=== PATIENT | male | born 1960 | race Caucasian/White ===

== ENCOUNTER 2018-09-22 16:27 | Observation (INO) ==
[2018-09-22] MEDS ORDERED: 0.9 % Sodium Chloride 1,000 ML IVC ONE (16:47)
--- NOTE | 2018-09-22 17:07 | Emergency Department Note ---
Disposition Clinical Impression: Failure to thrive Qualifiers: Failure to thrive age range: in adult Qualified Code(s): R62.7 - Adult failure to thrive Disposition: Admitted As Inpatient Condition: Fair Referrals: Maria Luisa Hayes CNP [Primary Care Provider] - Forms: ED Satisfaction Letter, Work/School Release Time of Disposition: 19:53 General Adult HPI - General Chief complaint: ED General Medical Stated complaint: decreased appetite Time Seen by Provider: 09/22/18 16:40 Source: patient, EMS Mode of arrival: EMS Limitations: no limitations Nursing Notes Reviewed: Yes Vital Signs Reviewed: Yes - History of Present Illness HPI Narrative: Patient was brought emergently from by EMS from home. Family members called squad because patient had poor appetite. Patient corroborates poor appetite but he does not complain of any other issues. Patient was here a week ago for the same issues. He was discharged because workup was negative. Family members were given instructions in the how to get the patient admitted to a detention if they did not feel that they could care for him at home. Apparently those calls were never made. Other than having lack of appetite, the patient has actually no other complaint. Pt Subjective Complaint: Poor appetite Onset (ago): unknown Pain Scale: 0 Associated symptoms: Reports: denies other symptoms Treatments Prior to Arrival: none - Related Data Home Medications Medication Instructions Recorded Confirmed Aspirin [Lo-Dose Aspirin EC] 81 mg PO DAILY 01/06/16 09/22/18 Clopidogrel [Plavix] 75 mg PO DAILY 01/06/16 09/22/18 Cyanocobalamin (Vitamin B-12) 1,000 mcg PO DAILY 01/06/16 09/22/18 [Vitamin B-12] Insulin Glulisine [Apidra Solostar] 15 unit SQ TID 01/06/16 09/22/18 Isosorbide MONOnitrate [Isosorbide 60 mg PO DAILY 01/06/16 09/22/18 Mononitrate] Lisinopril [Zestril] 40 mg PO DAILY 01/06/16 09/22/18 Metoprolol Succinate 12.5 mg PO DAILY 01/06/16 09/22/18 Sennosides [Evac-U-Gen] 8.6 mg PO DAILY 01/06/16 09/22/18 Tizanidine HCl 2 mg PO QID PRN 01/06/16 09/22/18 Atorvastatin [Lipitor] 10 mg PO HS 06/12/18 09/22/18 Gabapentin [Neurontin] 800 mg PO TID 06/12/18 09/22/18 Insulin Glargine,Hum.rec.anlog 34 unit SQ DAILY 06/12/18 09/22/18 [Basaglar Kwikpen U-100] OxyCODONE Immed Rel [Roxicodone 5 7.5 mg PO TID PRN 06/12/18 09/22/18 MG] amLODIPine [Norvasc] 10 mg PO DAILY 06/12/18 09/22/18 Allergies Allergy/AdvReac Type Severity Reaction Status Date / Time No Known Allergies Allergy Verified 09/15/18 16:24 All systems ED: reviewed and negative except as stated. Constitutional: Denies: fever, chills Eyes: Denies: vision change ENT ED: Denies: ear pain, throat pain, congestion Cardiovascular: Denies: chest pain, palpitations Respiratory: Reports: cough (Blood patient says that his cough is chronic). Denies: dyspnea, wheezes Gastrointestinal: Reports: other (Decreased appetite). Denies: abdominal pain, vomiting, diarrhea Musculoskeletal: Denies: back pain, neck pain Integumentary: Denies: rash Neurological: Denies: headache Past Medical History - Past Medical History Attestation: Yes The following information was validated with the patient. Source: patient, old records reviewed, nursing notes reviewed Medical history: Reports: coronary artery disease, CVA, DVT, diabetes, hepatitis, hypertension, myocardial infarction, peripheral artery disease Surgical history: Reports: LE vascular intervention, other (Right second toe amputation) Psychiatric history: Reports: no psych history - Social History Smoking Status: Former smoker Smokeless Tobacco Status: No Alcohol use: Reports: none Drug use: Reports: none Physical Exam - General Limitations: no limitations General appearance: alert, in no apparent distress - Head Head exam: atraumatic, normocephalic, normal inspection - Eye Eye exam: Present: normal appearance, PERRL, EOMI. Absent: scleral icterus, conjunctival injection - ENT ENT exam: normal exam, normal oropharynx, mucous membranes moist, normal external ear exam - Neck Neck exam: Present: normal inspection, full ROM, trachea midline. Absent: meningismus - Chest Chest inspection: Present: normal inspection, symmetric chest wall rise, tenderness - Respiratory Respiratory exam: Present: normal lung sounds bilaterally, respiratory distress. Absent: wheezes - Cardiovascular Cardiovascular exam: Present: regular rate, normal rhythm, irregular rhythm - Abdominal Exam Abdominal exam: Present: soft, Non-Tender, normal bowel sounds - Extremities Exam Extremities exam: Present: normal inspection. Absent: tenderness, pedal edema - Neurological Exam Neurological exam: Present: alert, oriented X3 - Psychiatric Psychiatric exam: Present: flat affect - Skin Skin exam: Present: warm, dry. Absent: rash Course Course Narrative: Patient sent in to the emergency room by family for the second time in a week. Patient says he has decreased appetite. Is not really interested in being here. There is some report any history about confusion. I think the patient is slow in answering but everything he said to me seems appropriate. I am not finding any focal neurologic symptoms or signs. Sound like there is more of a failure to thrive issue going on based on this patient's presentation now and what I reviewed from the previous ER visit. I am going to workup on the patient for medical issues. Disposition will be based on diagnostic results and reevaluation. - Reevaluation(s) Reevaluation #1: Labs look fine. However the patient's home circumstance does not make me bel ieve that he will do well at home. We cannot get a hold of family and it sounds like were was caring form is not in the picture at the present time. Patient really cannot ambulate or take care of himself. I spoke with the hospitalist and we will admit him here for what seems to be detention placement. Time: 19:51 - Consultations Consultation #1: Dr. Armstrong, hospitalist - I discussed the case with the hospice. He accepted the patient for admission. Time: 19:40 Vital Signs Temperature 98.0 F 09/22/18 16:27 Pulse Rate 84 09/22/18 16:27 Respiratory Rate 16 09/22/18 16:27 Blood Pressure 136/78 09/22/18 16:27 O2 Sat by Pulse Oximetry 97 09/22/18 16:27 Temperature 98.0 F 09/22/18 16:27 Pulse Rate 58 09/22/18 19:36 Respiratory Rate 20 09/22/18 19:36 Blood Pressure 154/70 09/22/18 19:36 O2 Sat by Pulse Oximetry 95 09/22/18 19:36 Oxygen Delivery Oxygen Delivery Room Air Medical Decision Making - Medical Records Medical records reviewed: Yes I reviewed the patient's medical records. - Lab Data Lab results reviewed: Yes I reviewed the patient's lab results. Result diagrams: 09/22/18 17:19 09/22/18 17:19 Lab Results 09/22/18 09/22/18 09/22/18 Range/Units 17:19 17:19 17:19 WBC 5.1 (4.3-11.1) K/mcL RBC 3.49 L (4.19-5.50) M/mcL Hgb 10.6 L (12.9-16.9) g/dL Hct 30.3 L (37.5-50.1) % MCV 86.8 (83.0-100.0) fL MCH 30.4 (28.0-33.3) pg MCHC 35.0 (31.6-35.5) g/dL RDW 13.0 (11.5-14.5) % Plt Count 201 (140-400) K/mcL MPV 9.3 L (9.4-12.4) fL Immature Gran % 0.4 (0-4) % Seg Neutrophils % 56.6 % Lymphocytes % 31.4 % Monocytes % 7.9 % Eosinophils % 3.3 % Basophils % 0.4 % Neutrophils # 2.9 (1.6-8.9) K/mcL Lymphocytes # 1.6 (0.6-4.6) K/mcL Monocytes # 0.4 (0.0-1.3) K/mcL Eosinophils # 0.2 (0.0-0.6) K/mcL Basophils # 0.0 (0.0-0.2) K/mcL Sodium 135 L (136-145) mEq/L Potassium 3.9 (3.5-5.1) mEq/L Chloride 102 (98-107) mEq/L Carbon Dioxide 25 (23-29) mEq/L BUN 16 (6-20) mg/dL Creatinine 0.91 (0.70-1.30) mg/dL Est GFR ( Amer) > 60 (> 60) Est GFR (Non-Af Amer) > 60 (> 60) BUN/Creatinine Ratio 18 (6-26) Glucose 133 H (70-105) mg/dL Calculated Osmolality 283 (280-300) Lactic Acid (0.5-2.2) mmol/L Calcium 9.3 (8.6-10.3) mg/dL Total Bilirubin 0.6 (0.3-1.0) mg/dL Direct Bilirubin 0.1 (0.0-0.2) mg/dL Indirect Bilirubin 0.5 (0.0-1.2) mg/dL AST 15 (13-39) Units/L ALT 13 (7-52) Units/L Alkaline Phosphatase 68 (34-104) Units/L Ammonia (16-53) mcmol/L Troponin I < 0.03 (< 0.04) ng/mL Serum Total Protein 7.2 (6.4-8.9) g/dL Albumin 3.8 (3.5-5.7) g/dL Globulin 3.4 (2.4-3.5) g/dL Albumin/Globulin Ratio 1.1 (1.1-2.2) Lipase 5 L (11-82) Units/L 09/22/18 09/22/18 Range/Units 17:19 17:19 WBC (4.3-11.1) K/mcL RBC (4.19-5.50) M/mcL Hgb (12.9-16.9) g/dL Hct (37.5-50.1) % MCV (83.0-100.0) fL MCH (28.0-33.3) pg MCHC (31.6-35.5) g/dL RDW (11.5-14.5) % Plt Count (140-400) K/mcL MPV (9.4-12.4) fL Immature Gran % (0-4) % Seg Neutrophils % % Lymphocytes % % Monocytes % % Eosinophils % % Basophils % % Neutrophils # (1.6-8.9) K/mcL Lymphocytes # (0.6-4.6) K/mcL Monocytes # (0.0-1.3) K/mcL Eosinophils # (0.0-0.6) K/mcL Basophils # (0.0-0.2) K/mcL Sodium (136-145) mEq/L Potassium (3.5-5.1) mEq/L Chloride (98-107) mEq/L Carbon Dioxide (23-29) mEq/L BUN (6-20) mg/dL Creatinine (0.70-1.30) mg/dL Est GFR ( Amer) (> 60) Est GFR (Non-Af Amer) (> 60) BUN/Creatinine Ratio (6-26) Glucose (70-105) mg/dL Calculated Osmolality (280-300) Lactic Acid 1.0 (0.5-2.2) mmol/L Calcium (8.6-10.3) mg/dL Total Bilirubin (0.3-1.0) mg/dL Direct Bilirubin (0.0-0.2) mg/dL Indirect Bilirubin (0.0-1.2) mg/dL AST (13-39) Units/L ALT (7-52) Units/L Alkaline Phosphatase (34-104) Units/L Ammonia 39 (16-53) mcmol/L Troponin I (< 0.04) ng/mL Serum Total Protein (6.4-8.9) g/dL Albumin (3.5-5.7) g/dL Globulin (2.4-3.5) g/dL Albumin/Globulin Ratio (1.1-2.2) Lipase (11-82) Units/L - Radiology Data Radiology results reviewed: Yes I reviewed the patient's radiology results. - EKG Data EKG #1 EKG attestation: Yes I reviewed and interpreted this EKG. EKG results narrative: Twelve-lead EKG performed at 1724 PM. Ordered, reviewed and to her by ED physician shows sinus rhythm at a rate of 78. Normal axis. Good hour progressi on across the precordium. No acute ischemic changes. Intervals within normal limits.
[2018-09-22 17:28] LABS: Basophils % 0.4 %; Eosinophils # 0.2 K/mcL (0.0-0.6); Eosinophils % 3.3 %; Hematocrit 30.3 % (37.5-50.1); Hemoglobin 10.6 g/dL (12.9-16.9); Immature Granulocytes % 0.4 % (0-4); Lymphocytes # 1.6 K/mcL (0.6-4.6); Lymphocytes % 31.4 %; Mean Corpuscular Hemoglobin 30.4 pg (28.0-33.3); Mean Corpuscular Volume 86.8 fL (83.0-100.0); Mean Platelet Volume 9.3 fL (9.4-12.4); Monocytes # 0.4 K/mcL (0.0-1.3); Monocytes % 7.9 %; Neutrophils # 2.9 K/mcL (1.6-8.9); Platelet Count 201 K/mcL (140-400); Red Blood Count 3.49 M/mcL (4.19-5.50); Segmented Neutrophils % 56.6 %
[2018-09-22 17:46] LABS: BUN/Creatinine Ratio 18 (6-26); Blood Urea Nitrogen 16 mg/dL (6-20); Calcium 9.3 mg/dL (8.6-10.3); Carbon Dioxide 25 mEq/L (23-29); Chloride 102 mEq/L (98-107); Glucose 133 mg/dL (70-105); Osmolality,Calculated 283 (280-300); Potassium 3.9 mEq/L (3.5-5.1); Sodium 135 mEq/L (136-145); eGFR For Non-African Americans > 60 (> 60)
[2018-09-22 17:47] LABS: Alanine Aminotransferase 13 Units/L (7-52); Albumin 3.8 g/dL (3.5-5.7); Albumin/Globulin Ratio 1.1 (1.1-2.2); Alkaline Phosphatase 68 Units/L (34-104); Aspartate Amino Transferase 15 Units/L (13-39); Bilirubin,Direct 0.1 mg/dL (0.0-0.2); Bilirubin,Indirect 0.5 mg/dL (0.0-1.2); Bilirubin,Total 0.6 mg/dL (0.3-1.0); Globulin 3.4 g/dL (2.4-3.5); Lipase 5 Units/L (11-82); Total Protein 7.2 g/dL (6.4-8.9)
[2018-09-22 17:49] LABS: Troponin I < 0.03 ng/mL (< 0.04)
[2018-09-22 19:40] LABS: Bilirubin,Urine Small (Negative); Blood,Urine Negative (Negative); Color,Urine Yellow (Yellow); Glucose,Urine (UA) Normal (Normal); Ketones,Urine Trace mg/dL (Negative); Leukocyte Esterase,Urine Negative (Negative); Nitrite,Urine Negative (Negative); Protein,Urine >=300 mg/dL (Neg-Trace); Specific Gravity,Urine 1.025 (1.010-1.025)
[2018-09-22 19:55] LABS: Clarity,Urine Slightly Cloudy (Clear)
[2018-09-22 19:56] LABS: Amorphous Sediment,Urine Many (Few)
[2018-09-22] MEDS ORDERED: Naloxone 0.4 MG/ML INJ IVP PRN (21:05)
[2018-09-22] MEDS ORDERED: Gabapentin 400 MG CAPSULE PO SCH (21:05)
[2018-09-22] MEDS ORDERED: *HR* OxyCODONE Immed Rel 5 MG TABLET PO PRN (21:05)
[2018-09-22] MEDS ORDERED: INSULIN GLULISINE 15 UNIT SQ SCH (21:05)
[2018-09-22] MEDS ORDERED: tiZANidine 4 MG TABLET PO PRN (21:05)
[2018-09-22 23:39] VITALS: BP 129/77
[2018-09-23] MEDS ORDERED: Lisinopril 20 MG TABLET PO SCH (09:00)
[2018-09-23] MEDS ORDERED: Sennosides 8.6 MG TABLET PO SCH (09:00)
[2018-09-23] MEDS ORDERED: amLODIPine 5 MG TABLET PO SCH (09:00)
[2018-09-23] MEDS ORDERED: NON-FORMULARY MEDICATION 1 EACH EACH (Insulin Glargine,Hum.Rec.Anlog [Basaglar Kwikpen U-1 SQ SCH (09:00)
[2018-09-23] MEDS ORDERED: Metoprolol XL (24 HR) Succ 25 MG TAB.ER.24H PO SCH (09:00)
[2018-09-23] MEDS ORDERED: Cyanocobalamin (B-12) 1,000 MCG TABLET PO SCH (09:00)
[2018-09-23] MEDS ORDERED: Isosorbide MONOnitrate (24 HR) 60 MG TAB.ER.24H PO SCH (09:00)
[2018-09-23] MEDS ORDERED: Aspirin Enteric Coated 81 MG Tablet PO SCH (09:00)
--- NOTE | 2018-09-27 13:14 | Electrocardiograph Report ---
[address] [address] Test Date: 2018-09-22 Pat Name: Avinash Camp Department: EDP-11 Room: [facility] Gender: Solution Design Engineer: : [id number] Requested By: Lucas Saunders Order Number: [id number] Reading MD: Aaron Vargas Measurements Intervals [place] Rate: 78 P: 82 OR: 162 QRS: 45 QRSD: 77 T: 77 QT: 400 QTc: 456 Interpretive Statements Sinus rhythm Abnormal R-wave progression, early transition Probable inferior infarct, old Electronically Signed On 09-27-2018 13:12:28 EDT by Aaron Vargas
== END 2018-09-23 00:12 | disposition other institution (70) ==
LOC: INPPIK 16:27 → EMEROOPIK 16:27 → INPPIK 20:34
PROVIDERS: ADMIT Internal Medicine; ATTEND Internal Medicine

== ENCOUNTER 2020-02-22 19:56 | Observation (INO) ==
[2020-02-22] MEDS ORDERED: Ondansetron 4 MG/2 ML VIAL IVP ONE (19:59)
[2020-02-22] MEDS ORDERED: 0.9 % Sodium Chloride 1,000 ML IVC ONE ×2 (20:02→20:28)
[2020-02-22] MEDS ORDERED: Piperacillin/Tazobactam 3.375 GM in 0.9 % Sodium Chloride Mini Bag 100 ML IVPB ONE (20:02)
[2020-02-22] MEDS ORDERED: 0.9 % Sodium Chloride 1,000 ML IVC SCH (20:15)
[2020-02-22] MEDS ORDERED: 0.9 % Sodium Chloride 500 ML IVC ONE (20:28)
[2020-02-22 20:57] LABS: Bilirubin,Urine Negative (Negative); Blood,Urine Negative (Negative); Clarity,Urine Clear (Clear); Color,Urine Yellow (Yellow); Glucose,Urine (UA) Normal (Normal); Ketones,Urine Negative (Negative); Leukocyte Esterase,Urine Negative (Negative); Nitrite,Urine Negative (Negative); PH,Urine 5.5 pH Units (5.0-8.0); Protein,Urine 30 mg/dL (Neg-Trace)
[2020-02-22 21:07] LABS: Basophils % 0.1 %; Eosinophils % 0.4 %; Hematocrit 33.7 % (37.5-50.1); Immature Granulocytes % 0.3 % (0-4); Lymphocytes # 0.4 K/mcL (0.6-4.6); Lymphocytes % 5.6 %; Mean Corpuscular HGB Conc 32.6 g/dL (31.6-35.5); Mean Corpuscular Hemoglobin 28.8 pg (28.0-33.3); Mean Corpuscular Volume 88.2 fL (83.0-100.0); Monocytes # 0.2 K/mcL (0.0-1.3); Monocytes % 2.8 %; Neutrophils # 6.6 K/mcL (1.6-8.9); Platelet Count 109 K/mcL (140-400); Red Blood Count 3.82 M/mcL (4.19-5.50); Red Cell Distribution Width 13.3 % (11.5-14.5); Segmented Neutrophils % 90.8 %; White Blood Count 7.3 K/mcL (4.3-11.1)
[2020-02-22 21:16] LABS: Mucus,Urine Many per lpf (None-Few); Squamous Epithelial Cell,Urine Moderate per hpf (None-Few); Transitional Epi Cells,Urine Moderate per hpf (None-Few)
[2020-02-22 21:29] LABS: Alanine Aminotransferase 13 Units/L (7-52); Albumin 3.6 g/dL (3.5-5.7); Albumin/Globulin Ratio 1.2 (1.1-2.2); Alkaline Phosphatase 68 Units/L (34-104); Aspartate Amino Transferase 17 Units/L (13-39); BUN/Creatinine Ratio 23 (6-26); Bilirubin,Total 0.5 mg/dL (0.3-1.0); Blood Urea Nitrogen 21 mg/dL (8-23); Calcium 8.3 mg/dL (8.6-10.3); Carbon Dioxide 26 mEq/L (23-29); Chloride 105 mEq/L (98-107); Globulin 2.9 g/dL (2.4-3.5); Glucose 158 mg/dL (70-105); Lipase 5 Units/L (11-82); Osmolality,Calculated 300 (280-300); Sodium 142 mEq/L (136-145); Total Protein 6.5 g/dL (6.4-8.9); eGFR For African Americans > 60 (> 60); eGFR For Non-African Americans > 60 (> 60)
[2020-02-23] MEDS ORDERED: *HR* Promethazine 25 MG/ML VIAL IVP PRN
[2020-02-23] MEDS ORDERED: Dextrose Gel 15 GM/37.5 ML TUBE PO PRN ×2
[2020-02-23] MEDS ORDERED: Milk and Molasses Enema 200 ML RC PRN
[2020-02-23] MEDS ORDERED: Naloxone 0.4 MG/ML INJ IVP PRN
[2020-02-23] MEDS ORDERED: Acetaminophen 325 MG TABLET PO PRN
[2020-02-23] MEDS ORDERED: Albuterol 2.5 MG/3 ML NEBULIZER IH PRN
[2020-02-23] MEDS ORDERED: D5% in Water 1,000 ML IVC PRN
[2020-02-23] MEDS ORDERED: tiZANidine 4 MG TABLET PO PRN
[2020-02-23] MEDS ORDERED: *HR* Dextrose 50 % in Water (Vial) 50 ML VIAL IVP PRN
[2020-02-23] MEDS: 0.9 % Sodium Chloride 1,000 ML IVC SCH ×2 (01:46→11:17)
[2020-02-23] MEDS ORDERED: Ipratropium/Albuterol Neb 3 ML IH SCH ×2 (04:00→08:00)
[2020-02-23] MEDS ORDERED: 0.9 % Sodium Chloride 500 ML IV ONE ×2 (04:19→08:00)
[2020-02-23] MEDS ORDERED: Piperacillin/Tazobactam 3.375 GM in 0.9 % Sodium Chloride Mini Bag 100 ML IVPB SCH (06:00)
[2020-02-23] MEDS ORDERED: 0.9 % Sodium Chloride 500 ML IVC ONE ×2 (07:25→08:59)
[2020-02-23] MEDS ORDERED: Insulin LISPRO 300 UNITS/3 ML VIAL SQ SCH ×2 (07:30→12:00)
[2020-02-23] MEDS ORDERED: Ondansetron 4 MG/2 ML VIAL IVP PRN ×2 (07:38)
[2020-02-23] MEDS ORDERED: Acetaminophen 650 MG RECTAL SUPP RC PRN (08:03)
[2020-02-23] MEDS ORDERED: Cyanocobalamin (B-12) 1,000 MCG TABLET PO SCH (09:00)
[2020-02-23] MEDS ORDERED: Gabapentin 400 MG CAPSULE PO SCH (09:00)
[2020-02-23] MEDS ORDERED: Aspirin Enteric Coated 81 MG Tablet PO SCH (09:00)
[2020-02-23] MEDS ORDERED: Insulin DETEMIR 100 UNIT/ML X5UNITS SQ SCH (09:00)
[2020-02-23] MEDS ORDERED: Sennosides 8.6 MG TABLET PO SCH (09:00)
[2020-02-23] MEDS ORDERED: MOM Conc 10 ML UD.LIQ PO PRN (09:00)
[2020-02-23 09:05] LABS: Basophils % 0.1 %; Eosinophils % 0.2 %; Hematocrit 27.5 % (37.5-50.1); Hemoglobin 9.1 g/dL (12.9-16.9); Immature Granulocytes % 0.6 % (0-4); Lymphocytes # 1.5 K/mcL (0.6-4.6); Lymphocytes % 14.8 %; Mean Corpuscular HGB Conc 33.1 g/dL (31.6-35.5); Mean Corpuscular Hemoglobin 29.4 pg (28.0-33.3); Mean Platelet Volume 9.7 fL (9.4-12.4); Monocytes # 0.4 K/mcL (0.0-1.3); Monocytes % 4.3 %; Platelet Count 110 K/mcL (140-400); Red Blood Count 3.09 M/mcL (4.19-5.50); Red Cell Distribution Width 13.4 % (11.5-14.5)
[2020-02-23 09:13] LABS: BUN/Creatinine Ratio 23 (6-26); Blood Urea Nitrogen 22 mg/dL (8-23); Calcium 7.7 mg/dL (8.6-10.3); Carbon Dioxide 25 mEq/L (23-29); Chloride 109 mEq/L (98-107); Glucose 87 mg/dL (70-105); Osmolality,Calculated 293 (280-300); Potassium 4.1 mEq/L (3.5-5.1); Sodium 140 mEq/L (136-145); eGFR For African Americans > 60 (> 60); eGFR For Non-African Americans > 60 (> 60)
[2020-02-23] MEDS ORDERED: 0.9 % Sodium Chloride 1,000 ML IV ONE (09:13)
[2020-02-23] MEDS ORDERED: Vancomycin 1,250 MG/262.5 ML IV.SOLN IVPB ONE (09:30)
[2020-02-23] MEDS ORDERED: Norepinephrine 4 MG/254 ML IV.SOLN IVC SCH (10:30)
[2020-02-23 11:21] VITALS: BP 94/48
[2020-02-23] MEDS ORDERED: Mirtazapine 15 MG TABLET PO SCH (21:00)
[2020-02-23] MEDS ORDERED: Melatonin 3 MG TABLET PO SCH (21:00)
== END 2020-02-23 11:25 | disposition short-term general hospital (02) ==
LOC: INPPIK 19:56 → EMEROOPIK 19:56 → INPPIK 23:28
PROVIDERS: ADMIT Family Medicine; ATTEND Family Medicine

== ENCOUNTER 2020-07-16 07:28 | Inpatient (IN) ==
[2020-07-16] MEDS ORDERED: 0.9 % Sodium Chloride 1,000 ML IVC ONE (07:30)
[2020-07-16] MEDS ORDERED: cefTRIAXone 2,000 MG in 0.9 % Sodium Chloride Mini Bag 100 ML IVPB ONE (07:31)
[2020-07-16] MEDS ORDERED: 0.9 % Sodium Chloride 1,000 ML IVC SCH (07:45)
[2020-07-16 07:50] LABS: Bilirubin,Urine Negative (Negative); Blood,Urine Negative (Negative); Clarity,Urine Clear (Clear); Color,Urine Yellow (Yellow); Glucose,Urine (UA) Normal (Normal); Ketones,Urine Negative (Negative); Leukocyte Esterase,Urine Negative (Negative); Nitrite,Urine Negative (Negative); PH,Urine 5.5 pH Units (5.0-8.0); Protein,Urine Trace mg/dL (Neg-Trace); Urobilinogen,Urine Normal (Normal)
[2020-07-16 08:05] LABS: Hematocrit 31.9 % (37.5-50.1); Hemoglobin 10.7 g/dL (12.9-16.9); Mean Corpuscular HGB Conc 33.5 g/dL (31.6-35.5); Mean Corpuscular Hemoglobin 29.8 pg (28.0-33.3); Mean Corpuscular Volume 88.9 fL (83.0-100.0); Mean Platelet Volume 9.3 fL (9.4-12.4); Platelet Count 118 K/mcL (140-400); Red Blood Count 3.59 M/mcL (4.19-5.50); White Blood Count 13.4 K/mcL (4.3-11.1)
[2020-07-16 08:22] LABS: Activated Partial Thrombo Time 29.2 Seconds (26.0-36.0); INR 1.2; Prothrombin Time 13.5 Seconds (9.4-12.1)
[2020-07-16 08:23] LABS: Amphetamine Screen,Urine Negative ng/mL (Cutoff=1000); Barbiturate Screen,Urine Negative ng/mL (Cutoff=200); Benzodiazepines Screen,Urine Negative ng/mL (Cutoff=200); Cannabinoid Screen,Urine Negative ng/mL (Cutoff = 50); Cocaine Screen,Urine Negative ng/mL (Cutoff= 300); Opiate Screen,Urine Positive ng/mL (Cutoff=300); Phencyclidine Screen,Urine Negative ng/mL (Cutoff=25)
[2020-07-16 08:25] LABS: Alanine Aminotransferase 10 Units/L (7-52); Albumin 3.6 g/dL (3.5-5.7); Albumin/Globulin Ratio 1.1 (1.1-2.2); Alkaline Phosphatase 59 Units/L (34-104); Aspartate Amino Transferase 14 Units/L (13-39); BUN/Creatinine Ratio 23 (6-26); Bilirubin,Direct 0.1 mg/dL (0.0-0.2); Bilirubin,Indirect 0.5 mg/dL (0.0-1.0); Bilirubin,Total 0.6 mg/dL (0.3-1.0); Blood Urea Nitrogen 21 mg/dL (8-23); Calcium 8.8 mg/dL (8.6-10.3); Carbon Dioxide 28 mEq/L (23-29); Chloride 100 mEq/L (98-107); Creatine Kinase 75 Units/L (30-223); Globulin 3.4 g/dL (2.4-3.5); Glucose 186 mg/dL (70-105); Osmolality,Calculated 290 (280-300); Potassium 4.7 mEq/L (3.5-5.1); Sodium 136 mEq/L (136-145); eGFR For African Americans > 60 (> 60); eGFR For Non-African Americans > 60 (> 60)
[2020-07-16 08:26] LABS: Basophils # 0.3 K/mcL (0.0-0.2); Lymphocytes # 1.6 K/mcL (0.6-4.6); Neutrophils # 11.5 K/mcL (1.6-8.9); Rouleaux Present (Not Present)
[2020-07-16] MEDS ORDERED: Piperacillin/Tazobactam 4.5 GM in Water for inj. (sterile) 20 ML IVP ONE (08:43)
[2020-07-16] MEDS ORDERED: Piperacillin/Tazobactam 4.5 GM in 0.9 % Sodium Chloride Mini Bag 100 ML IVPB ONE (09:00)
[2020-07-16] MEDS ORDERED: Naloxone 0.4 MG/ML INJ IVP PRN ×2 (09:19→11:20)
[2020-07-16] MEDS ORDERED: Ondansetron ODT 4 MG TAB.RAPDIS SL PRN ×2 (09:19→11:20)
[2020-07-16] MEDS ORDERED: MOM Conc 10 ML UD.LIQ PO PRN ×2 (09:19→11:20)
[2020-07-16] MEDS ORDERED: Bisacodyl 10 MG RECTAL SUPPOSITORY RC PRN ×2 (09:25→11:20)
[2020-07-16] MEDS ORDERED: Acetaminophen 325 MG TABLET PO PRN ×2 (09:25→11:20)
[2020-07-16] MEDS ORDERED: D5% in Water 1,000 ML IVC PRN ×2 (09:30→11:20)
[2020-07-16] MEDS ORDERED: Dextrose Gel 15 GM/37.5 ML TUBE PO PRN ×4 (09:30→11:20)
[2020-07-16] MEDS ORDERED: *HR* Dextrose 50 % in Water (Vial) 50 ML VIAL IVP PRN ×2 (09:30→11:20)
[2020-07-16] MEDS ORDERED: RINGERS LACTATED IVC ONE ×2 (10:00→11:20)
[2020-07-16] MEDS ORDERED: Insulin LISPRO 300 UNITS/3 ML VIAL SUBQ SCH (11:30)
[2020-07-16] MEDS ORDERED: Meropenem 1,000 MG in 0.9 % Sodium Chloride Mini Bag 100 ML IVPB SCH (12:00)
[2020-07-16] MEDS ORDERED: tiZANidine 4 MG TABLET PO SCH (13:00)
[2020-07-16] MEDS: tiZANidine 4 MG TABLET PO SCH ×3 (13:00→20:07)
[2020-07-16] MEDS: Insulin LISPRO 300 UNITS/3 ML VIAL SUBQ SCH ×2 (13:00→16:50)
[2020-07-16 14:38] LABS: Folate 14.2 ng/mL (3.0-16.0)
[2020-07-16] MEDS ORDERED: Gabapentin 400 MG CAPSULE PO SCH (15:00)
[2020-07-16] MEDS: Piperacillin/Tazobactam 3.375 GM in 0.9 % Sodium Chloride Mini Bag 100 ML IVPB SCH ×2 (15:21→23:17)
[2020-07-16] MEDS: Ringers Solution, Lactated 1,000 ML IVC SCH ×2 (15:22→23:16)
[2020-07-16] MEDS: Gabapentin 400 MG CAPSULE PO SCH ×2 (15:22→20:07)
[2020-07-16] MEDS: Mirtazapine 15 MG TABLET PO SCH (20:07)
[2020-07-16] MEDS: Melatonin 3 MG TABLET PO SCH (20:07)
[2020-07-16] MEDS ORDERED: Vancomycin 1,250 MG/262.5 ML IV.SOLN IVPB SCH (21:00)
[2020-07-16] MEDS ORDERED: Melatonin 3 MG TABLET PO SCH (21:00)
[2020-07-16] MEDS ORDERED: Mirtazapine 15 MG TABLET PO SCH (21:00)
[2020-07-17] MEDS: *HR* Enoxaparin 40 MG/0.4 ML SYRINGE SQ SCH (05:05)
[2020-07-17] MEDS ORDERED: *HR* Enoxaparin 40 MG/0.4 ML SYRINGE SQ SCH (06:00)
[2020-07-17] MEDS: Ringers Solution, Lactated 1,000 ML IVC SCH ×2 (06:03→15:27)
[2020-07-17] MEDS: Insulin LISPRO 300 UNITS/3 ML VIAL SUBQ SCH ×3 (07:40→16:06)
[2020-07-17 08:39] LABS: Basophils % 0.1 %; Eosinophils # 0.2 K/mcL (0.0-0.6); Eosinophils % 3.3 %; Hematocrit 29.2 % (37.5-50.1); Hemoglobin 9.5 g/dL (12.9-16.9); Immature Granulocytes % 0.3 % (0-4); Lymphocytes # 1.1 K/mcL (0.6-4.6); Lymphocytes % 15.1 %; Mean Corpuscular HGB Conc 32.5 g/dL (31.6-35.5); Mean Corpuscular Hemoglobin 29.1 pg (28.0-33.3); Mean Corpuscular Volume 89.6 fL (83.0-100.0); Mean Platelet Volume 9.6 fL (9.4-12.4); Monocytes # 0.4 K/mcL (0.0-1.3); Monocytes % 4.9 %; Neutrophils # 5.5 K/mcL (1.6-8.9); Platelet Count 113 K/mcL (140-400); Red Blood Count 3.26 M/mcL (4.19-5.50); Red Cell Distribution Width 13.3 % (11.5-14.5); Segmented Neutrophils % 76.3 %; White Blood Count 7.2 K/mcL (4.3-11.1)
[2020-07-17 08:51] LABS: Alanine Aminotransferase 9 Units/L (7-52); Albumin 3.2 g/dL (3.5-5.7); Albumin/Globulin Ratio 1.1 (1.1-2.2); Alkaline Phosphatase 47 Units/L (34-104); Aspartate Amino Transferase 14 Units/L (13-39); BUN/Creatinine Ratio 19 (6-26); Bilirubin,Total 0.4 mg/dL (0.3-1.0); Blood Urea Nitrogen 16 mg/dL (8-23); Calcium 8.7 mg/dL (8.6-10.3); Carbon Dioxide 28 mEq/L (23-29); Chloride 108 mEq/L (98-107); Glucose 118 mg/dL (70-105); Osmolality,Calculated 296 (280-300); Sodium 142 mEq/L (136-145); Total Protein 6.2 g/dL (6.4-8.9); eGFR For African Americans > 60 (> 60); eGFR For Non-African Americans > 60 (> 60)
[2020-07-17] MEDS ORDERED: Cyanocobalamin (B-12) 1,000 MCG TABLET PO SCH ×2 (09:00)
[2020-07-17] MEDS ORDERED: Insulin DETEMIR 100 UNIT/ML X5UNITS SUBQ SCH ×3 (09:00)
[2020-07-17] MEDS ORDERED: Aspirin Enteric Coated 81 MG Tablet PO SCH (09:00)
[2020-07-17] MEDS: Piperacillin/Tazobactam 3.375 GM in 0.9 % Sodium Chloride Mini Bag 100 ML IVPB SCH ×2 (09:10→15:28)
[2020-07-17] MEDS: Aspirin Enteric Coated 81 MG Tablet PO SCH (09:12)
[2020-07-17] MEDS: Gabapentin 400 MG CAPSULE PO SCH ×3 (09:13→20:33)
[2020-07-17] MEDS: tiZANidine 4 MG TABLET PO SCH ×4 (09:13→20:34)
[2020-07-17] MEDS: Melatonin 3 MG TABLET PO SCH (20:33)
[2020-07-17] MEDS: Mirtazapine 15 MG TABLET PO SCH (20:34)
[2020-07-18] MEDS: Piperacillin/Tazobactam 3.375 GM in 0.9 % Sodium Chloride Mini Bag 100 ML IVPB SCH ×2 (00:15→08:00)
[2020-07-18] MEDS: *HR* Enoxaparin 40 MG/0.4 ML SYRINGE SQ SCH (05:26)
[2020-07-18 07:56] LABS: Basophils % 0.3 %; Eosinophils # 0.3 K/mcL (0.0-0.6); Hematocrit 28.9 % (37.5-50.1); Hemoglobin 9.4 g/dL (12.9-16.9); Immature Granulocytes % 0.3 % (0-4); Lymphocytes # 1.3 K/mcL (0.6-4.6); Mean Corpuscular HGB Conc 32.5 g/dL (31.6-35.5); Mean Corpuscular Hemoglobin 29.1 pg (28.0-33.3); Mean Corpuscular Volume 89.5 fL (83.0-100.0); Mean Platelet Volume 9.5 fL (9.4-12.4); Monocytes # 0.4 K/mcL (0.0-1.3); Monocytes % 5.8 %; Neutrophils # 4.4 K/mcL (1.6-8.9); Platelet Count 114 K/mcL (140-400); Red Blood Count 3.23 M/mcL (4.19-5.50); Red Cell Distribution Width 13.2 % (11.5-14.5); Segmented Neutrophils % 69.6 %; White Blood Count 6.3 K/mcL (4.3-11.1)
[2020-07-18] MEDS: Gabapentin 400 MG CAPSULE PO SCH ×3 (07:58→20:51)
[2020-07-18] MEDS: Aspirin Enteric Coated 81 MG Tablet PO SCH (07:58)
[2020-07-18] MEDS: Insulin LISPRO 300 UNITS/3 ML VIAL SUBQ SCH ×3 (08:02→17:28)
[2020-07-18 08:12] LABS: Alanine Aminotransferase 9 Units/L (7-52); Albumin 3.1 g/dL (3.5-5.7); Alkaline Phosphatase 42 Units/L (34-104); Aspartate Amino Transferase 14 Units/L (13-39); BUN/Creatinine Ratio 13 (6-26); Bilirubin,Total 0.4 mg/dL (0.3-1.0); Blood Urea Nitrogen 11 mg/dL (8-23); Calcium 8.5 mg/dL (8.6-10.3); Carbon Dioxide 28 mEq/L (23-29); Chloride 108 mEq/L (98-107); Glucose 117 mg/dL (70-105); Magnesium 1.6 mg/dL (1.6-2.6); Osmolality,Calculated 294 (280-300); Phosphorous 3.2 mg/dL (2.7-4.5); Sodium 142 mEq/L (136-145); Total Protein 6.1 g/dL (6.4-8.9); eGFR For African Americans > 60 (> 60); eGFR For Non-African Americans > 60 (> 60)
[2020-07-18] MEDS: tiZANidine 4 MG TABLET PO SCH ×4 (08:17→20:52)
[2020-07-18] MEDS: levoFLOXacin 750 MG/150 ML 750 MG/150 ML BAG IVPB SCH (12:07)
[2020-07-18] MEDS: MetroNIDAZOLE 500 MG/100 ML 500 MG/100 ML BAG IVPB SCH ×2 (15:05→23:00)
[2020-07-18] MEDS: Mirtazapine 15 MG TABLET PO SCH (20:51)
[2020-07-18] MEDS: Melatonin 3 MG TABLET PO SCH (20:51)
[2020-07-19] MEDS: *HR* Enoxaparin 40 MG/0.4 ML SYRINGE SQ SCH (05:19)
[2020-07-19 06:35] VITALS: BP 133/69
[2020-07-19] MEDS: Aspirin Enteric Coated 81 MG Tablet PO SCH (07:49)
[2020-07-19] MEDS: Gabapentin 400 MG CAPSULE PO SCH (07:50)
[2020-07-19] MEDS: levoFLOXacin 750 MG/150 ML 750 MG/150 ML BAG IVPB SCH (07:52)
[2020-07-19] MEDS: tiZANidine 4 MG TABLET PO SCH (07:52)
[2020-07-19] MEDS: MetroNIDAZOLE 500 MG/100 ML 500 MG/100 ML BAG IVPB SCH (07:54)
[2020-07-19] MEDS: Insulin LISPRO 300 UNITS/3 ML VIAL SUBQ SCH ×2 (07:55→11:46)
== END 2020-07-19 14:15 | DRG 720 ==
LOC: EMEROOPIK 07:28 → INPPIK 11:01
PROVIDERS: ADMIT Family Medicine; ATTEND Family Medicine